=== PATIENT | male | born 1930 | race Caucasian/White ===

== ENCOUNTER 2020-11-12 10:59 | Emergency (ER) | payer MEDICARE, OTHER ==
[~2020-11-12] VITALS: Ht 182.9 cm; Wt 69.8 kg
[2020-11-12] MEDS ORDERED: ASA81BEC PO (11:15)
[2020-11-12] MEDS ORDERED: NORVASC 2.5 MG2.5 M1 PO (11:15)
[2020-11-12] MEDS ORDERED: PROSCAR 5MG TABL5 M1 PO (11:16)
[2020-11-12] MEDS ORDERED: IRON325 M1 PO (11:16)
[2020-11-12] MEDS ORDERED: MONTELUKAST SODI4 M1 PO (11:17)
[2020-11-12] MEDS ORDERED: HYDROCODON-ACE1 EAC7 PO (11:17)
[2020-11-12] MEDS ORDERED: [UNRECOGNIZED DRUG - OTHER] PO (11:17)
[2020-11-12] MEDS ORDERED: RAZADYNE 8 MG PO (11:17)
[2020-11-12] MEDS ORDERED: PRAVACHOL 20 MG20 M1 PO (11:18)
[2020-11-12] MEDS ORDERED: SERTRALINE HCL100 MG PO (11:18)
[2020-11-12] MEDS ORDERED: OMEPRAZOLE20 M3 PO (11:18)
[2020-11-12] MEDS ORDERED: MILK OF MA2400 MG/11 PO (11:19)
[2020-11-12] MEDS ORDERED: APAP W/CODEINE1 TA2 PO (11:19)
[2020-11-12] MEDS ORDERED: MIRALAX119 GM PO (11:20)
[2020-11-12] MEDS ORDERED: TUMS200 MG PO (11:20)
[2020-11-12] MEDS ORDERED: SKIN PROTECTAN454 GM TP (11:20)
[2020-11-12] MEDS ORDERED: DICLOFENAC SOD100 G1 TOP (11:20)
[2020-11-12 11:21] LABS: ABSOLUTE BASOPHILS 0.1 thou/uL (0.0-0.2); ABSOLUTE EOSINOPHILS 0.2 thou/uL (0.0-0.7); ABSOLUTE LYMPHOCYTES 0.8 thou/uL (0.8-5.3); ABSOLUTE MONOCYTES 0.5 thou/uL (0.0-1.2); ABSOLUTE NEUTROPHILS 6.5 thou/uL (1.6-8.1); BASOPHILS 1.1 %; EOSINOPHILS 2.8 %; HEMATOCRIT 34.4 % (42.0-52.0); HEMOGLOBIN 11.6 gm/dL (14.0-18.0); LYMPHOCYTES 9.8 %; MCH 28.9 pg (26.0-34.0); MCHC 33.9 g/dL (28.0-37.0); MCV 85.3 fL (80.0-100.0); MONOCYTES 6.5 %; MPV 7.3 fl. (7.2-11.1); NUCLEATED RBCS 0 /100WBC; PLATELET COUNT* 299 thou/uL (150-400); POLYS 79.8 %; RBC 4.03 mil/uL (4.50-6.00); RDW-CV 16.9 % (10.5-14.5); WBC 8.2 thou/uL (4.0-11.0)
[2020-11-12] MEDS ORDERED: ASPERCREME1 EACH TOP (11:21)
[2020-11-12] MEDS ORDERED: FLOMAX0.4 MG PO (11:21)
[2020-11-12] MEDS ORDERED: ZYPREXA2.5 MG PO (11:21)
[2020-11-12 11:29] LABS: CALCIUM 8.5 mg/dL (8.5-10.1); CREATININE 0.8 mg/dL (0.6-1.3); POTASSIUM 3.8 mmol/L (3.5-5.1)
[2020-11-12 11:34] LABS: ALBUMIN 3.1 g/dL (3.4-5.0); TOTAL BILIRUBIN 0.3 mg/dL (<0.1-1.0); TOTAL PROTEIN 6.9 g/dL (6.4-8.2)
[2020-11-12 13:07] VITALS: BP 127/65
== END 2020-11-12 13:12 | disposition home or self-care (01) ==
LOC: M.ERS 10:59
PROVIDERS: Family Medicine
DX: S61.412A Laceration without foreign body of left hand, initial encounter (principal); I10 Essential (primary) hypertension; Z79.2 Long term (current) use of antibiotics; Z79.82 Long term (current) use of aspirin; Z79.899 Other long term (current) drug therapy; Z86.2 Personal history of diseases of the blood and blood-forming organs and certain disorders involving the immune mechanism; W17.89XA Other fall from one level to another, initial encounter; Y93.89 Activity, other specified; Y92.89 Other specified places as the place of occurrence of the external cause; Y99.8 Other external cause status